=== PATIENT | female | born 1935 | race Caucasian/White ===

== ENCOUNTER 2016-06-27 00:22 | Day surgery (SDC) | payer MEDICARE, OTHER ==
[~2016-06-27] VITALS: Ht 166.4 cm; Wt 72.5 kg
[2016-06-27] VITALS (10 sets, daily range): BP systolic 107–149; BP diastolic 60–95; PULSE 93; RESP 14–19; O2SAT 98
[~2016-06-27 00:22] MED LIST: BIOT5TAB PO; CANNABIS TOP; CHOL10008 PO; IBUP1TAB PO; MAGN30TA3 PO; METO25TA6 PO; OMEG1CAP5 PO; PROP150T PO; WARF2.5T82 PO
[2016-06-27] MEDS ORDERED: WARF2.5T82 PO (14:42)
[2016-06-27] MEDS ORDERED: ACET-2605 PO (14:43)
[2016-06-27] MEDS ORDERED: Methohexital 10 mg/mL 50 mL Inj ONE (14:44)
[2016-06-27] MEDS ORDERED: 0.9% Sodium Chloride 250 ML ONE (14:44)
[2016-06-27] MEDS ORDERED: Flumazenil 0.1 mg/mL 5 mL Inj IV ONE (15:13)
--- NOTE | 2016-06-27 17:01 | NUR ---
D/C from [facility] following a complete recovery from sedation following a successful Cardioversion. NSR rates in the 50's at time of discharge. Pt driven home with her daughter and had all of her personal belongings.
--- NOTE | 2016-06-28 | PROCED ---
[address] [address] PROCEDURE NOTE PATIENT: KINGSLEY NICKERSON : 1935 MR#: [id number] ADMIT: 06/27/2016 JOB ID: [id number] DATE OF SERVICE: 06/27/2016 PREOPERATIVE DIAGNOSIS(ES): Atrial fibrillation. POSTOPERATIVE DIAGNOSIS(ES): Sinus rhythm. PROCEDURES PERFORMED: Direct current cardioversion. SURGEON: Jasson Shelton MD, electrophysiology attending. SEDATION: Versed 1 mg and Brevital 25 mg were utilized for appropriate level of sedation. INDICATION: The patient is a pleasant 80-year-old woman with atrial fibrillation status post previous ablation. She has recurrence of atrial fibrillation and comes in for a direct current cardioversion after discussion of risks and benefits, and confirmation of adequate anticoagulation. PROCEDURAL DESCRIPTION: Following informed signed consent, the patient was taken to the procedure suite in a fasting state where defibrillator patches were placed in the anterior and posterior positions. After adequate sedation, a 200 joule biphasic synchronized shock was used to convert her to sinus rhythm. She will be allowed to recover and discharged home for close followup. COMPLICATIONS: None. ESTIMATED BLOOD LOSS: Not applicable. IMPRESSION: Successful direct current cardioversion. PLAN: 1. Recovery and discharge from the [facility]. 2. Continue current medication regimen, including metoprolol, and warfarin. 3. Follow up with Steven Garcia in clinic in 3-4 weeks and with me in six months. ATTENDING STATEMENT: Jasson Shelton MD, electrophysiology attending, was present for and supervised/performed all aspects of this procedure.
== END 2016-06-27 23:59 | disposition home or self-care (01) ==
LOC: SPI 00:22
PROVIDERS: ATTEND Internal Medicine Cardiovascular Disease
DX: I48.0 Paroxysmal atrial fibrillation (principal); Z79.01 Long term (current) use of anticoagulants; Z79.899 Other long term (current) drug therapy; I10 Essential (primary) hypertension
CPT/HCPCS: 92960; 93005; 99152; J2250; J7050

== ENCOUNTER 2016-11-27 12:50 | Emergency (ER) | payer MEDICARE, OTHER ==
[~2016-11-27] VITALS: Ht 162.6 cm; Wt 72.3 kg
[~2016-11-27 12:50] MED LIST changes: +ACET-2605 PO; -BIOT5TAB PO; -CHOL10008 PO; -IBUP1TAB PO; -MAGN30TA3 PO; -OMEG1CAP5 PO
[2016-11-27 12:52] VITALS: BP 151/63; PULSE 57; RESP 12; O2SAT 99
[2016-11-27 12:57] VITALS: BP 156/61; PULSE 55; RESP 14; O2SAT 98
[2016-11-27 13:15] LABS: BASOPHILS % (AUTO) 0.5 % (0-3); EOSINOPHILS % (AUTO) 2.4 % (0-5); MONOCYTES % (AUTO) 6.4 % (4-12); Mean Corpuscular Hemoglobin 29.8 pg (27.0-35.0); Mean Corpuscular Volume 87.4 fL (81-100); NEUTROPHILS % (AUTO) 74.5 % (40-74); Platelet Count 250 bil/L (150-400)
[2016-11-27 13:17] LABS: INR 2.01 ratio
[2016-11-27 13:34] LABS: TROPONIN T < 0.010 ug/L (0.0-0.011)
[2016-11-27 13:35] LABS: Lipase 61 U/L (13-60); Magnesium 2.3 mg/dL (1.6-2.6)
--- NOTE | 2016-11-27 13:50 | ED.REPORT ---
HPI-General Illness Date of Service Nov 27, 2016 ED Provider: Moe Palma MD Pt is an 81 y/o female anticoagulated on Warfarin w/ a hx of paroxysmal a-fib s/ p ablation x2 on propafenone, HTN, HLD, presenting to the ED via EMS c/o symptomatic bradycardia onset about 2 weeks ago. She c/o associated intermittent mild fatigue, mild lightheadedness. The patient attributes her symptoms to bradycardia. The pt states that she has noticed her HR in the 40s occasionally and persistently in the 50s on monitor for the past few weeks. Today, the patient was feeling lightheaded and therefore called her daughter who is a nurse who instructed her on how to take her HR and with the patient's assessment she was 36 bpm therefore she decided to go to Urgent Care. Pt denies CP, SOB, KEVIN, vision changes, bloody stools, focal weakness, nausea, vomiting. EKG at Urgent Care showed 1st degree AV block rate in 50s. Nursing Notes Stated Complaint: BRAYDICARDIA Chief Complaint: Dysrhythmia/Cardiac Nursing Notes Reviewed: Yes Allergies: Coded Allergies: Bumble Bee (Verified Allergy, Severe, Anaphylaxis, 04/05/16) Wheat (Verified Allergy, Severe, Rash, 04/05/16) latex (Verified Allergy, Severe, Rash, 04/05/16) Sulfa (Sulfonamide Antibiotics) (Verified Allergy, Unknown, 04/05/16) Scheduled Acetaminophen/Diphenhydramine (Tylenol Pm Ex-Strength Caplet) 500 Mg-25 Mg Tablet 0.5-1 TAB PO HS Metoprolol Tartrate (Metoprolol Tartrate) 25 Mg Tablet 12.5 MG PO DAILY Propafenone (Propafenone) 150 Mg Tablet 225 MG PO Q8 PT TAKES AT [id number] Warfarin Sodium (Warfarin Sodium) 2.5 Mg Tablet 2.5 MG PO DAILY 1/2 tablet on Fridays Warfarin Sodium (Warfarin Sodium) 2.5 Mg Tablet 1.25 MG PO MONDAY ONLY Scheduled PRN ([cannabis cream]) 1 APPLIC TOP PRN For Pain General Time Seen by MD: 12:52 Chief Complaint Other (sammi) Hx Obtained From: Patient, EMS Arrived By: Ambulance Sudden in Onset?: No Onset Occurred: More than a week ago... 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 Past Medical History On Warfarin Atrial fibrillation s/p ablation x2 HTN HLD Past Surgical History Cardiac ablation x2 Smoking History Never Smoker Ambulatory Status Independent Review of Systems Full Review of Systems Constitutional: Reports: Fatigue, Denies: Chills, Fever Respiratory: Denies: Non-productive cough, Shortness of breath Cardiovascular: Denies: Chest pain GI: Denies: Abdominal pain, Bloody/tarry stool, Nausea, Vomiting Neurologic: Reports: Lightheaded, Denies: Abnormal movement, Bladder dysfunction, Bowel dysfunction, Change LOC , Confusion, Dizziness, Focal weakness, Headache, Numbness, Problem walking, Seizure, Shaking, Slurred speech, Spinning sensation, Syncope, Unable to speak, Vision change, Weakness Complete sys rev & neg: except as marked. Physical Exam Nursing note and vitals reviewed. Constitutional: Well-developed, well-nourished. Not diaphoretic. Well appearing. Head: Normocephalic and atraumatic. Mouth/Throat: Oropharynx is clear and moist. No oropharyngeal exudate. Eyes: EOM are normal. Pupils are equal, round, and reactive to light. Neck: Supple, no tracheal deviation. Cardiovascular: Normal rate, regular rhythm. Equal and intact distal pulses throughout. Pulmonary/Chest: Effort normal and breath sounds normal. No respiratory distress. Abdominal: Soft. No distension. There is no tenderness, rebound, or guarding. Bowel sounds present. Musculoskeletal: Range of motion grossly intact, moving all extremities. No edema or tenderness appreciated. Neurological: AOx3. Grossly nonfocal exam. Strength and sensation intact and equal to bilateral upper and lower extremities. Skin: Warm and dry, no rashes or pallor appreciated. Psychiatric: Appropriate mood and affect. Behavior appears normal. Vital Signs Vital Signs Date Time Temp Pulse Resp B/P Pulse Ox O2 Delivery O2 Flow Rate FiO2 11/27/16 15:58 36.7 54 18 144/55 98 Room Air 11/27/16 15:00 36.7 54 18 144/55 98 Room Air 11/27/16 14:00 55 12 157/63 99 Room Air 11/27/16 12:57 55 14 156/61 98 Room Air 11/27/16 12:52 36.7 57 12 151/63 99 Room Air Initial VS: Reviewed, Vital signs normal Interpretation & Diagnostics Lab Results Interpretation Result Diagram: 11/27/16 1300 11/27/16 1300 Test 11/27/16 13:00 11/27/16 13:41 White Blood Count 8.5th/mm3 (3.8-10.1) Red Blood Count 4.94mil/mm3 (3.90-5.20) Hemoglobin 14.7g/dL (12.0-15.6) Hematocrit 43.2% (35.0-46.0) Mean Corpuscular Volume 87.4fL (81-100) Mean Corpuscular Hemoglobin 29.8pg (27.0-35.0) Mean Corpuscular Hemoglobin Concent 34.0% (32.0-37.0) Red Cell Distribution Width 13.4% (12.3-15.4) Platelet Count 250bil/L (150-400) Neutrophils (%) (Auto) 74.5% (40-74) Lymphocytes (%) (Auto) 15.8% (14-46) Monocytes (%) (Auto) 6.4% (4-12) Eosinophils (%) (Auto) 2.4% (0-5) Basophils (%) (Auto) 0.5% (0-3) Prothrombin Time 21.8sec (8.1-12.5) Prothromb Time International Ratio 2.01ratio Sodium Level 133mEq/L (134-144) Potassium Level 4.9mEq/L (3.5-5.2) Chloride Level 96mEq/L (97-108) Carbon Dioxide Level 24mmol/L (18-29) Blood Urea Nitrogen 17mg/dL (8-27) Creatinine 0.80mg/dL (0.57-1.00) Estimat Glomerular Filtration Rate 99mL/min (>59) Glucose Level 106mg/dL (60-99) Calcium Level 9.2mg/dL (8.5-10.1) Magnesium Level 2.3mg/dL (1.6-2.6) Total Bilirubin 0.3mg/dL (0.0-1.2) Aspartate Amino Transf (AST/SGOT) 42U/L (0-50) Alanine Aminotransferase (ALT/SGPT) 37U/L (0-32) Alkaline Phosphatase 41U/L (25-165) Troponin T < 0.010ug/L (0.0-0.011) Pro-B-Type Natriuretic Peptide 828.4pg/mL (0-738) Total Protein 7.1g/dL (6.4-8.4) Albumin 3.9g/dL (3.4-5.0) Lipase 61U/L (13-60) Urine Color Yellow (YELLOW) Urine Appearance Clear (CLEAR,HAZY) Urine pH 7.0 (5.0-8.0) Urine Specific [place] 1.005 (1.003-1.035) Urine Protein Negativemg/dL (NEG,TRACE) Urine Glucose (UA) Negativemg/dL (NEGATIVE) Urine Ketones Negativemg/dL (NEGATIVE) Urine Occult Blood Small (NEGATIVE) Urine Nitrite Negative (NEGATIVE) Urine Bilirubin Negative (NEGATIVE) Urine Urobilinogen Normalmg/dL (NORMAL) Urine Leukocyte Esterase Small (NEGATIVE) Urine RBC 0-2/hpf (0-2) Urine WBC 6-10/hpf (0-5) Urine Epithelial Cells None/hpf (NONE-MOD) Urine Crystals None seen (NONE SEEN) Urine Bacteria Few/hpf (NONE-FEW) Urine Hyaline Casts None/lpf (NONE) Urine Granular Casts None seen (NONE SEEN) Urine Waxy Casts None seen (NONE SEEN) Urine Red Blood Cell Casts None seen (NONE SEEN) Urine White Blood Cell Casts None seen (NONE SEEN) Urine Mucus None seen (None Seen) Urine Trichomonas None seen (NONE SEEN) Urine Yeast None (NONE SEEN) Urinalysis Comment None Urine Culture Reflexed Indicated ECG Interpretation ECG Interpretation: Sinus rhythm rate 52 1st degree AV block Time: 13:54 Interpreted by: ED physician Normal ECG Interpretation: No acute ischemic changes X-Ray Chest Interpretation Chest Xray Interpretation: IMPRESSION: No acute pulmonary process. Dictated by: Peyton Street M.D. on 11/27/2016 at 14:01 Approved by: Peyton Street M.D. on 11/27/2016 at 14:02 View: Portable, 1 view Interpretation / Wet Read by: Interpret - Radiologist Re-Eval/Medical Decision Med Decision/Clinical Course 81-year-old female presenting to the ED for evaluation of some intermittent lightheadedness in the setting of a low heart rate noted at home earlier today. Upon initial evaluation in urgent care, patient did have a rate in the 50s and it has remained in the 50s here in the ED. She is currently well-appearing , feels well, able ambulate without difficulty. Left wrist studies reviewed, notable for a CBC and CMP grossly within normal limits, INR 2.01, BNP elevated 828, and UA suggestive of possible UTI. Lungs are clear, chest x-ray without evidence of pulmonary edema or CHF. EKG demonstrates first-degree heart block, however no evidence of complete heart block. Monitor on telemetry here in the ED without concerning findings. Discussed the patient with cardiology on-call as per below. Given all of her medications, decision was made to treat with a one-time dose of Fosfomycin here. And given her reassuring workup, well appearance, reasonable to discharge home with careful return precautions, follow up tomorrow with cardiology. Patient agreeable to the plan as stated, no further questions. Time of Eval: 15:18 Re-Evaluation/Progress Note: Pt rechecked. Informed pt of plan for discharge. Pt understands and agrees with plan for discharge. F/U instructions and RTER warnings given. All questions addressed. Consultation : Referral / Consult Name: Macy Finch MD Consulted With: Cardiology Call Returned at: 15:09 [place]: Agrees with eval, Agrees with plan Note: Ok to dc home. Clinic will call her for a repeat appointment tomorrow. Counseled Regarding: Diagnosis, Lab results, Need for follow-up, When/why to return to ED Discharge & Departure Primary Impression: Bradycardia Additional Impressions: First degree AV block Fatigue Fatigue type: unspecified Qualified Code: R53.83 - Other fatigue UTI (urinary tract infection) Urinary tract infection type: site unspecified Hematuria presence: without hematuria Qualified Code: N39.0 - Urinary tract infection, site not specified Disposition: Home Discharge Condition All VS Reviewed: Yes Condition: Stable Patient Instructions: Bradycardia (ED) Additional Instructions: Thank you for seeking care at the emergency room. It is difficult for us to make definitive diagnoses in the ED but we believe that you are experiencing fatigue which may be caused by a slow heart rate, although this is unclear as your heart rate was relatively normal while in the ED. Our primary goal today in the Emergency Department was to evaluate you for any life-threatening conditions. Your evaluation was reassuring. Your urine shows signs of possible infection. You were given a 1 time dose of antibiotics in the ED today. Continue your home medications as prescribed. I spoke with the marketing recruiter on-call today, Dr. Finch, who will have her office call you to set up an appointment to be seen tomorrow for follow-up. You should return to the Emergency Department immediately if you develop worsening fatigue or lightheadedness, chest pain, shortness of breath, palpitations, passing out, or any other concerning signs or symptoms. Thank you for letting us partake in your care today. Referrals: Nimco Barber (PCP) Macy Finch MD, Ramy L MD Scribe Attestation Portions of this note were transcribed by Reece Rogers. I, Dr. Palma personally performed the history, physical exam and medical decision-making; I reviewed and confirmed the accuracy of the information in the transcribed note. Signed by Nery Dickson, 11/27/16 - 1400 copies to: Macy Finch MD; Jasson Shelton MD; Nimco Barber William B MD Nov 27, 2016 13:50 REECE ROGERS Nov 27, 2016 13:51
[2016-11-27 14:00] VITALS: BP 157/63; PULSE 55; RESP 12; O2SAT 99
--- NOTE | 2016-11-27 14:04 | DRSVH ---
PROCEDURE: X-RAY CHEST, TWO VIEWS ([id number]) INDICATIONS: SHORTNESS OF BREATH TECHNIQUE: 2 views of the chest were acquired. COMPARISON: [facility], , CHEST 1 VIEW, 04/02/2016, 10:16. FINDINGS: Surgical changes and devices: None. Lungs and pleura: No pleural effusions or pneumothorax. Chronic interstitial changes are present. Kyra ngs are hyperinflated suggestive of COPD. Mediastinum: Mediastinal contours are normal. Heart size is normal. Bones and chest wall: No suspicious bony abnormalities. Soft tissues appear unremarkable. IMPRESSION: No acute pulmonary process. Dictated by: Peyton Strete M.D. on 11/27/2016 at 14:01 Approved by: Peyton Street M.D. on 11/27/2016 at 14:02
[2016-11-27 15:00] VITALS: BP 144/55; PULSE 54; RESP 18; O2SAT 98
[2016-11-27 15:06] LABS: APPEARANCE,URINE CLEAR (CLEAR,HAZY); COLOR,URINE YELLOW (YELLOW)
[2016-11-27 15:07] LABS: OCCULT BLOOD,URINE SMALL (NEGATIVE); UROBILINOGEN,URINE NORMAL (NORMAL)
[2016-11-27 15:58] VITALS: BP 144/55; PULSE 54; RESP 18; O2SAT 98
== END 2016-11-27 15:59 | disposition home or self-care (01) ==
LOC: SED 12:50 → EDBD 12:50 → SED 15:59
DX: I44.0 Atrioventricular block, first degree (principal); R53.83 Other fatigue; N39.0 Urinary tract infection, site not specified; R42 Dizziness and giddiness; I10 Essential (primary) hypertension; I48.0 Paroxysmal atrial fibrillation; Z91.030 Bee allergy status; Z91.018 Allergy to other foods; Z79.01 Long term (current) use of anticoagulants; Z91.040 Latex allergy status